=== PATIENT | female | born 2000 | race Caucasian/White ===

== ENCOUNTER → 2020-06-26 17:15 | Outpatient (CLI) | payer OTHER, SELFPAY ==
--- NOTE | 2020-06-26 17:19 | XR_ITS ---
PROCEDURE: XR KNEE LT 3V CLINICAL INDICATION: LEFT KNEE PAIN COMPARISON: No exams were available for comparison FINDINGS: No acute fracture or dislocation. No significant arthritic change. There is a fairly well-circumscribed lytic lesion involving the distal shaft the femur laterally measuring 6.2 cm longitudinal, 2.3 cm transverse, and 2.7 cm AP. The margins are fairly well-circumscribed with greater sclerosis along the distal aspect of the lesion. No obvious fracture or periosteal reaction. There is a narrow zone of transition. IMPRESSION: 1. No acute fracture. 2. Fairly well-circumscribed lytic lesion of the distal femur at the distal diaphyseal region as described above. This may represent a nonossifying fibroma. Other more aggressive lesions are not excluded and follow-up is recommended. MRI without and with contrast and bone scan may provide further evaluation.. Dictated by: Chacho Merchant MD 06/27/2020 04:17 Chacho Merchant MD in [place] 06/27/2020 04:17
== END ==
PROVIDERS: PCP Family Medicine; Visit Provider Family Medicine
DX: M25.562 Pain in left knee (principal)
CPT/HCPCS: 73562

== ENCOUNTER → 2020-07-06 13:57 | Outpatient (CLI) | payer OTHER, MEDICAID, SELFPAY ==
--- NOTE | 2020-07-06 14:00 | MR_ITS ---
PROCEDURE: MR FEMUR LT WO/W CON CLINICAL INDICATION: PAIN IN LEFT KNEE PT. C/O LEFT DSTAL FEMUR AND KNEE PAIN WITH NO KNOWN TRAUMA. LEFT KNEE COMPARISON: CR XR KNEE LT 3V from 06/26/2020 TECHNIQUE: Routine multiplanar multi echo sequences are performed without and with gadolinium enhancement. FINDINGS: There is a complex lytic lesion in the distal femur the distal diaphyseal region laterally involving both the intramedullary region and the cortex measuring 5 cm cephalad caudad 2 cm transverse, and 2.3 cm AP. This has internal cystic areas and does not demonstrate contrast enhancement. There is minimal endosteal scalloping posteriorly and minimal expansion of the cortex laterally.. No obvious soft tissue component or enhancement. There is a small Lawson's cyst present at 2 cm. IMPRESSION: Indeterminate lytic lesion of the distal femur. There are multiple cystic areas without enhancement or soft tissue component but with some expansion of the cortex. Differential diagnosis in this patient's age group would include fibrous dysplasia, aneurysmal bone cyst, eosinophilic granuloma, nonossifying fibroma. Cannot exclude the possibility of a more aggressive lesion. Recommend limited bone scan to determine activity of this lesion and orthopedic consult.. Dictated by: Chacho Merchant MD 07/10/2020 10:37 Chacho Merchant MD in [place] 07/10/2020 10:37
== END ==
PROVIDERS: PCP Family Medicine; Visit Provider Family Medicine
DX: M89.9 Disorder of bone, unspecified (principal); M25.562 Pain in left knee
CPT/HCPCS: 73720; A9576

== ENCOUNTER 2020-09-18 15:30 | Outpatient (RCR) | payer OTHER, MEDICAID, SELFPAY | END 2020-09-18 15:35 | disposition home or self-care (01) | LOC: PT 15:30 | PROVIDERS: PCP Family Medicine; Visit Provider Orthopaedic Surgery | DX: M25.561 Pain in right knee (principal) | CPT/HCPCS: 97010; 97014; 97110; 97163; G0283 ==

== ENCOUNTER → 2021-05-27 09:03 | Outpatient (CLI) | payer SELFPAY ==
--- NOTE | 2021-05-27 20:57 | PC.NURSE ---
Pt called and advised of positive covid test
--- NOTE | 2021-05-27 20:57 | PC.NURSE ---
pt called and advised of positive covid test
== END ==
PROVIDERS: PCP Family Medicine; Visit Provider Nurse Practitioner Family
DX: Z20.822 Contact with and (suspected) exposure to COVID-19 (principal); R05 Cough; J02.9 Acute pharyngitis, unspecified; U07.1 COVID-19
CPT/HCPCS: U0003

== ENCOUNTER 2021-06-04 08:59 | Emergency (ER) | payer SELFPAY ==
[2021-06-04 09:05] VITALS: BP 133/91; PULSE 88; RESP 18; TEMP 36.7; O2SAT 96; BMI 32.3
--- NOTE | 2021-06-04 09:48 | HMH.EDUTC ---
[facility] [place] Disposition Clinical Impression: Cough, Encounter for laboratory testing for COVID-19 virus Disposition: Home, Self-Care Condition on Discharge: Good Instructions: Cough, DI for COVID-19 (Suspected or Confirmed ), Coronavirus Disease 2019, Preventing the Spread of Coronavirus Discharge Instructions Additional Instructions: *Monitor Temp, Over the counter Motrin or Tylenol as directed/as needed Tylenol every 4 hours and Motrin every 6 hours (as long as your family doctor has told you that you can take it) for fever or pain. and straight to ER if unable to lower temp less than 101.0 after medication given *Warm salt water gargles may help to soothe the throat *Throat Lozenges *Warm fluids like tea with honey may help to soothe the throat *Sleep elevated *Humidifier/Vaporizer *Flonase 2 sprays in each nostril daily but be aware that it may take 2-3 days before you notice improvement Follow the instructions given to you by your Family Doctor or Health Dept Follow up IMMEDIATELY for new or worsening symptoms or no Noticeable improvement over the next 48-72 hours. 911 for difficulty breathing or swallowing You were tested for today for COVID19 your test result should be back in the next 24-48 hours, you may call to the [facility] to see if your test results are back in the next 48 hours [phone] [facility] hours are 9am-9pm You was given a handout with instructions for Self Quarantine and Self isolation for while you wait on test results and what to do if they are positive If you are positive the Health Dept will be contacting you also Make sure to take your Vitamins Vit. C Vit D and Zinc if you can take them Prescriptions: Benzonatate [Tessalon Perle 100mg Cap*] 100 mg PO TID PRN #15 cap PRN Reason: Cough Transmission Status: Pending to Clinic Pharm[facility] Referrals: German Mcpherson MD [Primary Care Provider] - As needed Forms: Work/School Release Time of Disposition: 10:00 Medical Decision Making - Karl Inquiry Pt receiving controlled substance: No Karl was queried for this patient: No Vital Signs: 06/04/21 09:05 Temperature 98.0 F Temperature Source Oral Pulse Rate [Right Brachial] 88 Respiratory Rate 18 Blood Pressure [Right Arm] 133/91 H Blood Pressure Mean [Right Arm] 105 Blood Pressure Source [Right Arm] Automatic Cuff Blood Pressure Position [Right Arm] Sitting 02 Sat by Pulse Oximetry 96 Oxygen Delivery Method Room Air [facility] [place] HPI - General Stated complaint: coughing Time Seen by Provider: 06/04/21 09:48 Mode of Arrival: Ambulatory Source of Information: Patient Limitations: No Limitations Description of Symptoms (Recalled from Triage Doc. by RN): PATIENT C/O COUGH AND CONGESTION. REQUESTING COVID TEST HEENT Symptoms (Recalled from RN notes): Yes Resp Symptoms (Recalled from RN notes): Yes Skin Symptoms (Recalled from RN notes): No MS Symptoms (Recalled from RN notes): No Functional Status (Recalled from RN notes): WNL - History of Present Illness Provider Complaint: Patient states that she tested positive for COVID on 05/27/21 States that she is still having cough and nasal congestion, her mother told her she may need to get retested States that she is set to come out of quarantine later in the week Denies SOA - Related Data Previous Rx's Medication Instructions Recorded Benzonatate [Tessalon Perle 100mg 100 mg PO TID PRN #15 cap 06/04/21 Cap*] Allergies Allergy/AdvReac Type Severity Reaction Status Date / Time No Known Allergies Allergy Verified 10/02/19 09:25 - Worker's Comp Is this a Worker's Comp case?: No [facility] History - Hepatitis A Screen Drug use history?: No High risk sexual behaviors?: No History of sexually transmitted infection?: No Currently employed?: No Childcare worker?: No Do you have indoor plumbing?: Yes Do you have electricity?: Yes Attestation statement:: This patient has been screened for Hepatitis A risk factors. I have reviewed the pa
[2021-06-04 10:04] VITALS: BP 133/91; PULSE 88; RESP 18; TEMP 36.7; O2SAT 96
--- NOTE | 2021-06-04 21:56 | PC.NURSE ---
PT NOTIFIED OF COVID TEST RESULTS
== END 2021-06-04 10:14 | disposition home or self-care (01) ==
PROVIDERS: Emergency Provider Nurse Practitioner; PCP Family Medicine
DX: U07.1 COVID-19 (principal)
CPT/HCPCS: 99202; G0463; U0003

== ENCOUNTER 2022-12-19 08:01 | Emergency (ER) | payer OTHER, SELFPAY ==
[2022-12-19 08:10] VITALS: BP 145/85; PULSE 131; RESP 23; TEMP 37.7; O2SAT 95; BMI 35.8
--- NOTE | 2022-12-19 08:20 | EXP.UTC ---
Discharge Plan Disposition Patient Disposition: Home, Self-Care Condition: Good Prescriptions Prescriptions: New amoxicillin [amoxicillin] 500 mg tablet 500 mg PO TID 10 Days Qty: 30 0RF benzonatate [benzonatate] 100 mg capsule 100 mg PO TIDP PRN (Reason: Cough) Qty: 30 0RF methylprednisolone 4 mg Tablets,Dose Pack 4 mg PO DIRECTED Qty: 21 0RF Referrals Follow up/Referrals: German Mcpherson MD [Primary Care Provider] - See instructions Activity Restrictions/Add. Instructions Additional Instructions/Restrictions: Drink plenty of fluids. Take tylenol or ibuprofen for pain or fever. Take the medications as directed. Follow up with your regular doctor. GO TO THE ER FOR ANY WORSENING SYMPTOMS Throw your tooth brush away and get a new one. Clinical Impressions Clinical Impression: Strep throat Stand Alone Forms Stand Alone Forms: Work/School Release Discharge ED Provider: Harjeet Bowen [facility] [place] HPI General Stated complaint: sore throat, WINN, chills, fever Time Seen by Provider: 12/19/22 08:20 History of Present Illness Provider Complaint: She states that for the past 1 day she has had sore throat, chills and malaise. Related Data Previous Rx's Medication Instructions Recorded amoxicillin 500 mg tablet 500 mg PO TID 10 days #30 tabs 12/19/22 benzonatate 100 mg capsule 100 mg PO TIDP PRN Cough #30 caps 12/19/22 methylprednisolone 4 mg tablets in 4 mg PO DIRECTED #21 tabs 12/19/22 a dose pack Allergies Allergy/AdvReac Type Severity Reaction Status Date / Time No Known Allergies Allergy Verified 10/02/19 09:25 [facility] Disclaimer: The information contained in this section may have been updated after the patient was seen, as this information can be updated by other users. Social History Smoking Status: Never smoker alcohol intake: never current occupational status: other Travel in the last 8 weeks: None ROS Obtained: Yes All systems reviewed & no additional complaints except as documented Constitutional Constitutional: Reports chills and Reports fever(s) Eyes Eyes: Denies eye discharge ENT Ears, Nose, Mouth, and Throat: Reports as per HPI Cardiovascular Cardiovascular: Denies chest pain Respiratory Respiratory: Denies chest congestion and Reports cough Gastrointestinal Gastrointestingal: Reports nausea; Denies abdominal pain, constipation, cramping, diarrhea or vomiting Musculoskeletal Musculoskeletal: Denies arthralgias Integumentary/Breasts Skin/Breast: Denies rash Neurologic Neurologic: Denies paresthesias Physical Exam General General appearance: alert and in no apparent distress Head Head exam: atraumatic, normocephalic and normal inspection Eye Eye exam: Present normal appearance, PERRL and EOMI ENT ENT exam: Present mucous membranes moist and normal external ear exam Expanded ENT Exam TM/Canal exam: Bilateral TM: erythema and bulging Nose exam: Absent sinus tenderness Mouth exam: Present normal external inspection; Absent drooling Teeth exam: Present normal inspection Throat exam: Present tonsillar erythema, tonsillomegaly and tonsillar exudate Neck Neck exam: Present normal inspection, full ROM and trachea midline; Absent tenderness, meningismus or lymphadenopathy Chest Chest inspection: Present normal inspection and symmetric chest wall rise; Absent tenderness Respiratory Respiratory exam: Present normal lung sounds bilaterally; Absent respiratory distress, wheezes or stridor Cardiovascular Cardiovascular exam: Present regular rate and normal rhythm; Absent systolic murmur or diastolic murmur Abdominal Exam Abdominal exam: Present soft and normal bowel sounds; Absent distention, tenderness, guarding, rebound or rigidity Extremities Exam Extremities exam: Present normal inspection and normal capillary refill; Absent calf tenderness Back Exam Back exam: Present normal inspection
[2022-12-19 08:24] LABS: UTC Influenza A Antigen Negative (Negative)
[2022-12-19 08:25] LABS: UTC Influenza B Antigen Negative (Negative)
[2022-12-19 08:25] LABS: UTC Strep Screen (Rapid) Positive (Negative)
[2022-12-19 08:45] VITALS: BP 145/85; PULSE 131; RESP 23; TEMP 37.7; O2SAT 95
== END 2022-12-19 09:28 | disposition home or self-care (01) ==
PROVIDERS: Emergency Provider Nurse Practitioner Family; PCP Family Medicine
DX: J02.0 Streptococcal pharyngitis (principal)
CPT/HCPCS: 87804; 87880; 99212; 99213; G0463

== ENCOUNTER 2023-06-30 08:00 | Emergency (ER) | payer OTHER, SELFPAY ==
[2023-06-30 08:05] VITALS: BP 155/96; PULSE 96; RESP 18; TEMP 37; O2SAT 98; BMI 35.6
--- NOTE | 2023-06-30 08:22 | EXP.UTC ---
Discharge Plan Disposition Patient Disposition: Home, Self-Care Condition: Good Prescriptions Prescriptions: New azithromycin [Zithromax Z-Don] 250 mg tablet See Rx Instructions .ROUTE .COMPLEX 5 Days Qty: 6 0RF Rx Instructions: For 250 mg dose pack: take 500 mg today (day 1), then 250 mg for 4 days (days 2-5) benzonatate 100 mg capsule 100 mg PO TID PRN (Reason: cough) Qty: 30 0RF methylprednisolone [Medrol (Don)] 4 mg tablets,dose pack See Rx Instructions .Route .COMPLEX 6 Days Qty: 21 0RF Rx Instructions: taper pack; No Action amoxicillin [amoxicillin] 500 mg tablet 500 mg PO TID 10 Days Qty: 30 0RF benzonatate [benzonatate] 100 mg capsule 100 mg PO TIDP PRN (Reason: Cough) Qty: 30 0RF methylprednisolone 4 mg Tablets,Dose Pack 4 mg PO DIRECTED Qty: 21 0RF methylprednisolone 4 mg Tablets,Dose Pack 4 mg PO DIRECTED Qty: 21 0RF cefdinir 300 mg capsule 300 mg PO BID Qty: 20 0RF Referrals Follow up/Referrals: Carlos Anthony MD [Primary Care Provider] - See instructions Activity Restrictions/Add. Instructions Additional Instructions/Restrictions: *Monitor Temp, Over the counter Motrin or Tylenol as directed/as needed Tylenol every 4 hours and Motrin every 6 hours (as long as your family doctor has told you that you can take it) for fever or pain. and straight to ER if unable to lower temp less than 101.0 after medication given *Warm salt water gargles may help to soothe the throat *Throat Lozenges? *Warm fluids like tea with honey may help to soothe the throat? *Sleep elevated *Humidifier/Vaporizer Follow up IMMEDIATELY for new or worsening symptoms or no Noticeable improvement over the next 48-72 hours. 911 for difficulty breathing or swallowing Clinical Impressions Clinical Impression: Sinusitis Qualifiers: Sinusitis location: unspecified location Chronicity: unspecified Qualified Code(s): J32.9 - Chronic sinusitis, unspecified Instructions Patient Instructions: DI for Sinusitis, Sinusitis Discharge ED Provider: Sarah Garcia [facility] HPI General Stated complaint: congestion, cough Mode of Arrival: Ambulatory Source of Information: Patient Limitations: No Limitations Time Seen by Provider: 06/30/23 08:22 Description of Symptoms (Recalled from Triage Doc. by RN): PATIENT C/O COUGH AND NASAL CONGESTION HEENT Symptoms (Recalled from RN notes): Yes Resp Symptoms (Recalled from RN notes): Yes Skin Symptoms (Recalled from RN notes): No MS Symptoms (Recalled from RN notes): No Functional Status (Recalled from RN notes): WNL History of Present Illness Provider Complaint: Patient states that she has been having sinus congestion and pressure for about a week that hasnt got better States that now she is having drainage in the back of her throat that is making her cough Related Data Previous Rx's Medication Instructions Recorded amoxicillin 500 mg tablet 500 mg PO TID 10 days #30 tabs 12/19/22 benzonatate 100 mg capsule 100 mg PO TIDP PRN Cough #30 caps 12/19/22 methylprednisolone 4 mg tablets in 4 mg PO DIRECTED #21 tabs 12/19/22 a dose pack cefdinir 300 mg capsule 300 mg PO BID #20 caps 05/11/23 methylprednisolone 4 mg tablets in 4 mg PO DIRECTED #21 tabs 05/11/23 a dose pack azithromycin 250 mg tablet See Rx Instructions PO .COMPLEX 5 06/30/23 (Zithromax Z-Don) days #6 tabs benzonatate 100 mg capsule 100 mg PO TID PRN cough #30 caps 06/30/23 methylprednisolone 4 mg tablets in See Rx Instructions .Route 06/30/23 a dose pack (Medrol (Don)) .COMPLEX 6 days #21 tabs Allergies Allergy/AdvReac Type Severity Reaction Status Date / Time No Known Allergies Allergy Verified 10/02/19 09:25 Worker's Comp Is this a Worker's Comp case?: No [facility] Disclaimer: The information contained in this section may have been updated after the patient was seen, as this information can be updated by other
[2023-06-30 08:30] VITALS: BP 155/96; PULSE 96; RESP 18; TEMP 37; O2SAT 98
== END 2023-06-30 08:33 | disposition home or self-care (01) ==
PROVIDERS: Emergency Provider Nurse Practitioner; PCP Family Medicine
DX: J01.90 Acute sinusitis, unspecified (principal)
CPT/HCPCS: 99212; 99214; G0463

== ENCOUNTER 2023-10-02 08:03 | Emergency (ER) | payer OTHER, SELFPAY ==
[2023-10-02 08:10] VITALS: BP 146/95; PULSE 117; RESP 18; TEMP 37.5; O2SAT 95; BMI 34.0
--- NOTE | 2023-10-02 08:13 | EXP.UTC ---
Discharge Plan Disposition Patient Disposition: Home, Self-Care Condition: Good Prescriptions Prescriptions: New cefdinir 300 mg capsule 300 mg PO BID Qty: 20 0RF No Action omeprazole 20 mg capsule,delayed release(DR/EC) PO fluticasone propionate 50 mcg/actuation spray,suspension intranasal Patient Comments: instill 1 SPRAY IN EACH NOSTRIL EVERY DAY celecoxib 100 mg capsule PO Patient Comments: TAKE ONE CAPSULE BY MOUTH EVERY DAY --TAKE WITH FOOD-- amlodipine 5 mg tablet PO Patient Comments: TAKE ONE TABLET BY MOUTH EVERY DAY loratadine 10 mg tablet PO montelukast 10 mg tablet PO Referrals Follow up/Referrals: German Mcpherson MD [Primary Care Provider] - See instructions Activity Restrictions/Add. Instructions Additional Instructions/Restrictions: *Monitor Temp, Over the counter Motrin or Tylenol as directed/as needed Tylenol every 4 hours and Motrin every 6 hours (as long as your family doctor has told you that you can take it) for fever or pain. and straight to ER if unable to lower temp less than 101.0 after medication given *Warm salt water gargles may help to soothe the throat *Throat Lozenges? *Warm fluids like tea with honey may help to soothe the throat? *Sleep elevated *Humidifier/Vaporizer Take medication as prescribed Your throat swab was sent for culture. Those results are typically sent to your primary care. Be sure to follow up in 2-3 days with your family doctor/primary care physician if no improvement so they can review those result and treat if necessary. If you don?t have a primary care doctor, I recommend you get one but in the mean time, you will have to return to a walk in clinic Follow up IMMEDIATELY for new or worsening symptoms or no Noticeable improvement over the next 48-72 hours. 911 for difficulty breathing or swallowing Clinical Impressions Clinical Impression: Otitis media Qualifiers: Otitis media type: unspecified Laterality: left Qualified Code(s): H66.92 - Otitis media, unspecified, left ear Instructions Patient Instructions: Middle Ear Infection, Sore Throat Discharge ED Provider: Sarah Garcia [facility] General Stated complaint: sore throat Time Seen by Provider: 10/02/23 08:13 History of Present Illness Provider Complaint: Patient states that she has been having sore throat, bilateral ear pain, swollen lymph nodes and congestion that has continued to get worse since Thursday States that today her throat and ear was hurting worse so she came in to get checked Related Data Home Medications Medication Instructions Recorded Confirmed amlodipine 5 mg tablet mg PO 08/26/23 08/26/23 celecoxib 100 mg capsule mg PO 08/26/23 08/26/23 fluticasone propionate 50 intranasal 08/26/23 08/26/23 mcg/actuation nasal spray,suspension loratadine 10 mg tablet mg PO 08/26/23 08/26/23 montelukast 10 mg tablet mg PO 08/26/23 08/26/23 omeprazole 20 mg capsule,delayed mg PO 08/26/23 08/26/23 release Previous Rx's Medication Instructions Recorded cefdinir 300 mg capsule 300 mg PO BID #20 caps 10/02/23 Allergies Allergy/AdvReac Type Severity Reaction Status Date / Time No Known Allergies Allergy Verified 10/02/23 08:21 [facility] Disclaimer: The information contained in this section may have been updated after the patient was seen, as this information can be updated by other users. Social History Smoking Status: Never smoker alcohol intake: never current occupational status: other Travel in the last 8 weeks: None ROS Obtained: Yes All systems reviewed & no additional complaints except as documented and Yes Systems reviewed as appropriate & no additional complaints except as documented Constitutional Constitutional: Reports system reviewed and no additional complaints
[2023-10-02 08:20] LABS: UTC Strep Screen (Rapid) Negative (Negative)
[2023-10-02 08:32] VITALS: BP 146/95; PULSE 117; RESP 18; TEMP 37.4; O2SAT 95
== END 2023-10-02 08:32 | disposition home or self-care (01) ==
PROVIDERS: Emergency Provider Nurse Practitioner; PCP Family Medicine
DX: H66.92 Otitis media, unspecified, left ear (principal); R07.0 Pain in throat; H92.03 Otalgia, bilateral; R09.81 Nasal congestion
CPT/HCPCS: 87880; 99212; 99214; G0463

== ENCOUNTER 2024-03-06 08:02 | Emergency (ER) | payer OTHER, SELFPAY ==
[2024-03-06 08:15] VITALS: BP 135/75; PULSE 130; RESP 20; TEMP 37.8; O2SAT 97; BMI 36.9
--- NOTE | 2024-03-06 08:27 | EXP.UTC ---
Discharge Plan Disposition Patient Disposition: Home, Self-Care Condition: Good Prescriptions Prescriptions: New azithromycin [Zithromax] 250 mg tablet 250 mg PO UD DOSE PK Qty: 6 0RF Rx Instructions: Take two (2) tablets today, then one (1) tablet days #2 thru #5 methylprednisolone 4 mg Tablets,Dose Pack 4 mg PO DIRECTED 6 Days Qty: 21 0RF Rx Instructions: Take 1 pack as directed for 6 days hfashknhuyurdzp-spkdxrbwa-AM [Bromfed DM] 2-30-10 mg/5 mL Syrup 5 ml PO Q6H PRN (Reason: Cough) Qty: 240 0RF No Action omeprazole 20 mg capsule,delayed release(DR/EC) 20 mg PO DAILY fluticasone propionate 50 mcg/actuation spray,suspension 1 spray intranasal DAILY Patient Comments: instill 1 SPRAY IN EACH NOSTRIL EVERY DAY celecoxib 100 mg capsule 100 mg PO DAILY Patient Comments: TAKE ONE CAPSULE BY MOUTH EVERY DAY --TAKE WITH FOOD-- amlodipine 5 mg tablet 5 mg PO DAILY Patient Comments: TAKE ONE TABLET BY MOUTH EVERY DAY loratadine 10 mg tablet 10 mg PO DAILY montelukast 10 mg tablet 10 mg PO DAILY Referrals Follow up/Referrals: German Mcpherson MD [Primary Care Provider] - See instructions Activity Restrictions/Add. Instructions Additional Instructions/Restrictions: Drink plenty of fluids. Take tylenol or ibuprofen for pain or fever. Take the medications as directed. Follow up with your regular doctor. GO TO THE ER FOR ANY WORSENING SYMPTOMS Clinical Impressions Clinical Impression: Otitis media Qualifiers: Otitis media type: unspecified Laterality: left Qualified Code(s): H66.92 - Otitis media, unspecified, left ear Sinusitis Qualifiers: Sinusitis location: unspecified location Chronicity: unspecified Qualified Code(s): J32.9 - Chronic sinusitis, unspecified Stand Alone Forms Stand Alone Forms: Work/School Release Instructions Patient Instructions: Middle Ear Infection, DI for Viral Syndrome Discharge ED Provider: Harjeet Bowen [facility] General Stated complaint: fever, sore throat, ear pain, headache, vomitting Time Seen by Provider: 03/06/24 08:27 Related Data Home Medications Medication Instructions Recorded Confirmed amlodipine 5 mg tablet 5 mg PO DAILY 08/26/23 03/06/24 celecoxib 100 mg capsule 100 mg PO DAILY 08/26/23 03/06/24 fluticasone propionate 50 1 spray intranasal DAILY 08/26/23 03/06/24 mcg/actuation nasal spray,suspension loratadine 10 mg tablet 10 mg PO DAILY 08/26/23 03/06/24 montelukast 10 mg tablet 10 mg PO DAILY 08/26/23 03/06/24 omeprazole 20 mg capsule,delayed 20 mg PO DAILY 08/26/23 03/06/24 release Previous Rx's Medication Instructions Recorded azithromycin 250 mg tablet 250 mg PO UD DOSE PK #6 tabs 03/06/24 (Zithromax) mmbsgijaobmcstd-xisefiatdwhixke-UV 5 ml PO Q6H PRN Cough #240 mL 03/06/24 2 mg-30 mg-10 mg/5 mL oral syrup (Bromfed DM) methylprednisolone 4 mg tablets in 4 mg PO DIRECTED 6 days #21 tabs 03/06/24 a dose pack Allergies Allergy/AdvReac Type Severity Reaction Status Date / Time No Known Allergies Allergy Verified 10/02/23 08:21 [facility] Disclaimer: The information contained in this section may have been updated after the patient was seen, as this information can be updated by other users. Medical History (Updated 03/06/24 @ 09:14 by Harjeet Bowen APRN) History of gastroesophageal reflux (GERD) Asthma Hypertension Social History Smoking Status: Never smoker alcohol intake: never current occupational status: other Travel in the last 8 weeks: None ROS Obtained: Yes All systems reviewed & no additional complaints except as documented Constitutional Constitutional: Denies chills, Reports fever(s) and Reports poor appetite Eyes Eyes: Denies eye discharge ENT Ears, Nose, Mouth, and Throat: Denies ear discharge, Reports otalgia, Denies hearing loss, Denies sinus pain and Reports sore throat Cardiovascular Cardiovascular: Denies chest pain and Denies dyspnea Respiratory Respiratory: Denies chest congestion, Reports cough and Denies dyspnea Gastrointestinal Gastrointestingal: Denies abdominal pain, diarrhea, nausea or vomiting Musculoskeletal Musculoskeletal: Denies arthralgias Integumentary/Breasts Skin/Breast: Denies rash Physical Exam General General appearance: alert and in no apparent distress Head Head exam: atraumatic, normocephalic and normal inspection Eye Eye exam: Present normal appearance; Absent PERRL or EOMI ENT ENT exam: Present mucous membranes moist and normal external ear exam Expanded ENT Exam TM/Canal exam: Bilateral TM: erythema, bulging and effusion Nose exam: Absent sinus tenderness Nasal speculum exam: Bilateral: normal Mouth exam: Present normal external inspection and other; Absent drooling Teeth exam: Present normal inspection Throat exam: Present tonsillar erythema and tonsillomegaly Neck Neck exam: Present normal inspection, full ROM and trachea midline; Absent tenderness, meningismus or lymphadenopathy Chest Chest inspection: Present normal inspection and symmetric chest wall rise; Absent tenderness Respiratory Respiratory exam: Present normal lung sounds bilaterally; Absent respiratory distress, wheezes or stridor Cardiovascular Cardiovascular exam: Present regular rate, normal rhythm and normal heart sounds; Absent tachycardia or irregular rhythm Abdominal Exam Abdominal exam: Present soft and normal bowel sounds; Absent distention, tenderness, guarding, rebound or rigidity Extremities Exam Extremities exam: Present normal inspection and normal capillary refill; Absent tenderness, joint swelling or calf tenderness Back Exam Back exam: Present normal inspection and full ROM; Absent tenderness, CVA tenderness (R) or CVA tenderness (L) Neurological Exam Neurological exam: Present alert, oriented X3, CN II-XII intact, normal gait and reflexes normal; Absent motor sensory deficit Psychiatric Psychiatric exam: Present normal affect and normal mood Skin Skin exam: Present warm, dry, intact and normal color Lymphatic Lymphatic Findings: no adenopathy Medical Decision Making Medical Records Medical records reviewed: No I reviewed the patient's medical records. Karl Inquiry Pt receiving controlled substance: No Lab Data Lab results reviewed: Yes I reviewed the patient's lab results.
[2024-03-06 09:08] LABS: UTC Influenza A Antigen Negative (Negative); UTC Influenza B Antigen Negative (Negative)
[2024-03-06 09:10] LABS: UTC Strep Screen (Rapid) Negative (Negative)
[2024-03-06 09:20] VITALS: BP 135/75; PULSE 130; RESP 20; TEMP 37.8; O2SAT 97
[2024-03-06 10:08] LABS: Coronavirus 19, PCR Not Detected (NotDetected); Influenza A, PCR Not Detected (NotDetected); Influenza B, PCR Not Detected (NotDetected)
== END 2024-03-06 09:26 | disposition home or self-care (01) ==
PROVIDERS: Emergency Provider Nurse Practitioner Family; PCP Family Medicine
DX: H66.92 Otitis media, unspecified, left ear (principal); J01.90 Acute sinusitis, unspecified; R50.9 Fever, unspecified; R51.9 Headache, unspecified; R07.0 Pain in throat
CPT/HCPCS: 87636; 87804; 87880; 99212; 99214; G0463

== ENCOUNTER 2024-06-04 08:06 | Outpatient (CLI) | payer OTHER, SELFPAY ==
[2024-06-04 09:58] LABS: Creatinine,Urine Random 81 mg/dL (Not Estab.)
[2024-06-04 10:14] LABS: Microalbumin < 6.000 mg/L (0-16.7)
[2024-06-04 10:16] LABS: Chloride 105 mmol/L (98-107); Potassium 4.2 mmoL/L (3.5-5.1); Sodium 140 mmol/L (136-145)
[2024-06-04 10:19] LABS: Anion Gap 11.2 mEq/L (5-15); Blood Urea Nitrogen 14 mg/dl (7-17); Calcium 8.9 mg/dl (8.4-10.2); Carbon Dioxide 28 mmol/L (22.0-30.0); Cholesterol 222 mg/dl (140-200); Estimated Glomerular Filt Rate 87 ml/min (>60); GFR (African American) 106 ML/MIN (>60); Glucose 98 mg/dl (74-100); Triglycerides 143 mg/dl (30-150); VLDL Cholesterol 29 mg/dL (0-40)
[2024-06-04 10:20] LABS: Chol/HDL Ratio 5.6 (1-3.5); HDL Cholesterol 40 mg/dl (40-60)
[2024-06-04 10:30] LABS: Direct LDL Cholesterol 137.76 mg/dL (100-129)
== END 2024-06-04 23:59 | disposition home or self-care (01) ==
LOC: LAB 08:07
PROVIDERS: PCP Family Medicine; Visit Provider Family Medicine
DX: I10 Essential (primary) hypertension (principal)
CPT/HCPCS: 36415; 80048; 80061; 82043; 82570

== ENCOUNTER 2024-10-15 14:31 | Emergency (ER) | payer OTHER, SELFPAY ==
--- NOTE | 2024-10-15 15:33 | ED_ITS ---
Discharge Plan Disposition Patient Disposition: Home, Self-Care Condition: Good Prescriptions Prescriptions: New amoxicillin 875 mg tablet 875 mg PO Q12H Qty: 20 0RF lrjcckjmobmkvzy-euoxekkfe-OZ [Bromfed DM] 2-30-10 mg/5 mL Syrup 5 ml PO Q6H PRN (Reason: Cough) Qty: 240 0RF No Action omeprazole 20 mg capsule,delayed release(DR/EC) 20 mg PO DAILY fluticasone propionate 50 mcg/actuation spray,suspension 1 spray intranasal DAILY Patient Comments: instill 1 SPRAY IN EACH NOSTRIL EVERY DAY celecoxib 100 mg capsule 100 mg PO DAILY Patient Comments: TAKE ONE CAPSULE BY MOUTH EVERY DAY --TAKE WITH FOOD-- amlodipine 5 mg tablet 5 mg PO DAILY Patient Comments: TAKE ONE TABLET BY MOUTH EVERY DAY loratadine 10 mg tablet 10 mg PO DAILY montelukast 10 mg tablet 10 mg PO DAILY azithromycin [Zithromax] 250 mg tablet 250 mg PO UD DOSE PK Qty: 6 0RF Rx Instructions: Take two (2) tablets today, then one (1) tablet days #2 thru #5 methylprednisolone 4 mg Tablets,Dose Pack 4 mg PO DIRECTED 6 Days Qty: 21 0RF Rx Instructions: Take 1 pack as directed for 6 days jmlgwtrhurluesm-seugvsbdu-PC [Bromfed DM] 2-30-10 mg/5 mL Syrup 5 ml PO Q6H PRN (Reason: Cough) Qty: 240 0RF Referrals Follow up/Referrals: Carlos Anthony MD [Primary Care Provider] - See instructions Activity Restrictions/Add. Instructions Additional Instructions/Restrictions: Drink plenty of fluids. Take tylenol or ibuprofen for pain or fever. Take the medications as directed. Follow up with your regular doctor. GO TO THE ER FOR ANY WORSENING SYMPTOMS Throw your tooth brush away and get a new one. Clinical Impressions Clinical Impression: Strep throat Instructions Patient Instructions: Strep Throat, DI for Strep Throat, Amoxicillin Print Language Print Language: Tamazight Discharge ED Provider: Harjeet Bowen [facility] [place] HPI General Stated complaint: st zamudio ear pain Time Seen by Provider: 10/15/24 15:33 History of Present Illness Provider Complaint: She states that for the past 2 days she has had worsening sore throat, low grade fever and malaise. Related Data Home Medications ?Medication ?Instructions ?Recorded ?Confirmed amlodipine 5 mg tablet 5 mg PO DAILY 08/26/23 03/06/24 celecoxib 100 mg capsule 100 mg PO DAILY 08/26/23 03/06/24 fluticasone propionate 50 1 spray intranasal DAILY 08/26/23 03/06/24 mcg/actuation nasal spray,suspension loratadine 10 mg tablet 10 mg PO DAILY 08/26/23 03/06/24 montelukast 10 mg tablet 10 mg PO DAILY 08/26/23 03/06/24 omeprazole 20 mg capsule,delayed 20 mg PO DAILY 08/26/23 03/06/24 release Previous Rx's ?Medication ?Instructions ?Recorded azithromycin 250 mg tablet 250 mg PO UD DOSE PK #6 tabs 03/06/24 (Zithromax) tpcnaawiexxkrfj-ccirubxmxcklxhz-PT 5 ml PO Q6H PRN Cough #240 mL 03/06/24 2 mg-30 mg-10 mg/5 mL oral syrup (Bromfed DM) methylprednisolone 4 mg tablets in 4 mg PO DIRECTED 6 days #21 tabs 03/06/24 a dose pack amoxicillin 875 mg tablet 875 mg PO Q12H #20 tabs 10/15/24 bsditgivvqjcjlf-wzfqdkodswwxnjk-DG 5 ml PO Q6H PRN Cough #240 mL 10/15/24 2 mg-30 mg-10 mg/5 mL oral syrup (Bromfed DM) Allergies Allergy/AdvReac Type Severity Reaction Status Date / Time No Known Allergies Allergy Verified 10/02/23 08:21 [facility] Disclaimer: The information contained in this section may have been updated after the patient was seen, as this information can be updated by other users. Medical History (Updated 10/15/24 @ 16:22 by Harjeet Bowen APRN) History of gastroesophageal reflux (GERD) Asthma Hypertension Social History Smoking Status: Never smoker alcohol intake: never current occupational status: other Travel in the last 8 weeks: None Have you lived/traveled outside US in past 30 days?: No Contact w/someone who lives/traveled outside US past 30 days?: No Exposure to someone with infectious disease in past 14 days?: No Do you have a fever (greater than 100.4 F or 38 C)?: No Have you tested positive for COVID-19: No Exposed to someone with COVID-19 in past 14 days?: No Do you have a sore throat?: Yes Do you have a cough?: No Do you have any weakness?: Yes Do you have any diarrhea?: No Are you experiencing any unusual bleeding?: No Do you have any muscle aches/pain?: No Do you have any abdominal pain?: No Are you experiencing loss of taste or smell?: No ROS Obtained: Yes All systems reviewed & no additional complaints except as documented Constitutional Constitutional: Reports chills and Reports fever(s) Eyes Eyes: Denies eye discharge ENT Ears, Nose, Mouth, and Throat: Reports as per HPI Cardiovascular Cardiovascular: Denies chest pain Respiratory Respiratory: Denies chest congestion and Reports cough Gastrointestinal Gastrointestingal: Reports nausea; Denies abdominal pain, constipation, cramping, diarrhea or vomiting Musculoskeletal Musculoskeletal: Denies arthralgias Integumentary/Breasts Skin/Breast: Denies rash Neurologic Neurologic: Denies paresthesias Physical Exam General General appearance: alert and in no apparent distress Head Head exam: atraumatic, normocephalic and normal inspection Eye Eye exam: Present normal appearance, PERRL and EOMI ENT ENT exam: Present mucous membranes moist and normal external ear exam Expanded ENT Exam TM/Canal exam: Bilateral TM: erythema and bulging Nose exam: Absent sinus tenderness Mouth exam: Present normal external inspection; Absent drooling Teeth exam: Present normal inspection Throat exam: Present tonsillar erythema, tonsillomegaly and tonsillar exudate Neck Neck exam: Present normal inspection, full ROM and trachea midline; Absent tenderness, meningismus or lymphadenopathy Chest Chest inspection: Present normal inspection and symmetric chest wall rise; A bsent tenderness Respiratory Respiratory exam: Present normal lung sounds bilaterally; Absent respiratory distress, wheezes, stridor or accessory muscle use Cardiovascular Cardiovascular exam: Present regular rate and normal rhythm; Absent systolic murmur or diastolic murmur Abdominal Exam Abdominal exam: Present soft and normal bowel sounds; Absent distention, tenderness, guarding, rebound or rigidity Extremities Exam Extremities exam: Present normal inspection and normal capillary refill; Absent calf tenderness Back Exam Back exam: Present normal inspection and full ROM; Absent tenderness, CVA tenderness (R) or CVA tenderness (L) Neurological Exam Neurological exam: Present alert, oriented X3 and CN II-XII intact Psychiatric Psychiatric exam: Present normal affect and normal mood Skin Skin exam: Present warm, dry, intact and normal color Medical Decision Making Medical Records Medical records reviewed: No I reviewed the patient's medical records. Screening: Per USPSTF and CDC recommendations, given the prevalence of disease in our region, it is our hospital?s policy to screen for HIV and viral Hepatitis for all patients aged 18 and over and those with ongoing risk factors. Karl Inquiry Pt receiving controlled substance: No Lab Data Lab results reviewed: Yes I reviewed the patient's lab results.
[2024-10-15 15:43] VITALS: BP 130/91; PULSE 115; RESP 18; TEMP 37.1; O2SAT 96; BMI 37.0
[2024-10-15 15:47] LABS: UTC Strep Screen (Rapid) Positive (Negative)
[2024-10-15 16:37] VITALS: BP 130/91; PULSE 115; RESP 18; TEMP 37.1
== END 2024-10-15 16:37 | disposition home or self-care (01) ==
PROVIDERS: Emergency Provider Nurse Practitioner Family; PCP Family Medicine
DX: J02.0 Streptococcal pharyngitis (principal)
CPT/HCPCS: 87880; 99213; G0381

== ENCOUNTER 2025-06-07 07:32 | Outpatient (CLI) | payer OTHER, SELFPAY ==
--- OUTSIDE RECORDS SUMMARY | 2025-03-27 12:15 | XMS_ITS ---
Author Organization [facility] Address [address] [place] [id number] Care Team Providers Care Stenotypist Name Role Phone Ligia Mcpherson Primary Care Provider Carlos Anthony Unavailable [phone] Allergies No Known Allergies REASON FOR VISIT boil on left thigh Medications Medication SIG (Take, Route, Frequency, Duration) Notes Start Date End Date Status amLODIPine Besylate 5 MG 1 tab(s) orally once a day; Duration: 90 days Active Omeprazole 20 mg TAKE TWO CAPSULES BY MOUTH EVERY DAY 30 minutes BEFORE morning meal; Duration: 90 Active Loratadine 10 mg TAKE ONE TABLET BY M OUTH EVERY DAY; Duration: 90 Active CeleBREX 100 MG 1 capsule with food Orally Once a day; Duration: 90 days Active Montelukast Sodium 10 mg TAKE ONE TABLET BY MOUTH EVERY DAY; Duration: 90 Active Airsupra 90-80 MCG/ACT 2 puffs as needed Inhalation Six times a day 12/04/2023 Active Spacer/Aero-Holding Chambers - as directed 12/04/2023 Active Fluticasone Propionate 50 MCG/ACT 1 spray in each nostril Nasally Once a day 06/03/2023 Active Clindamycin HCl 300 MG 1 capsule Orally every 8 hrs; Duration: 7 days 03/27/2025 Active Albuterol Sulfate HFA 108 (90 Base) MCG/ACT 2 puff(s) inhaled every 6 hours as needed Active Problems Problem Type SNOMED Code ICD Code Onset Dates Problem Status W/U Status Risk Notes Problem Hidradenitis suppurativa (16155091) Hidradenitis suppurativa (L73.2) Active confirmed Vital Signs Blood pressure systolic 122 mm Hg 03/27/20 25 Blood pressure diastolic 80 mm Hg 025 Heart Rate 110 /min 03/27/2025 Height 61.50 in 03/27/2025 Weight 195 lbs 03/27/2025 BMI 36.24 kg/m2 03/27/2025 Encounters Encounter Location Date Provider Diagnosis [facility] [address] [place] [address] [address] [facility] [address] [place], [place] [id number] 03/27/2025 Carlos Anthony Hidradenitis suppura tiva L73.2 and Cellulitis of left thigh L03.116 Assessments Encounter Date Diagnosis (ICD Code) Assessment Notes Treatment Notes Treatment Clinical Notes Section Notes 03/27/2025 Hidradenitis suppurativa (ICD-10 - L73.2) Discussed referral to dermatology, patient will call when she wants to proceed 03/27/2025 Cellulitis of left thigh (ICD-10 - L03.116) Plan Of Treatment Medication Medication Name Sig Start Date Stop Date Notes Clindamycin HCl 300 MG 1 capsule Orally every 8 hrs; Duration: 7 days 03/27/2025 Treatment Notes Assessment Notes Hidradenitis suppurativa Discussed refer ral to dermatology, patient will call when she wants to proceed Next Appt Details Follow Up: via phone to repo rt progress, Reason: Provider Name:Carlos Tran , 12/04/2025 04:00:00 PM, [facility] [address], [address], [place], [id number], Progress Notes * IMELDA PRICEFOSTERDOB:[birth year] (24 yo F)Acc No.[id number]:03/27/2025 Progress Notes Patient: TRENTON RIBEIRO Provider: Nita Anthony M.D. :2000 A ge:24 Y S ex:Female Date:03/27/2025 Address:[id number] Pcp:Ligia Mcpherson Subjective: * Chief Complaints: * 1 . Boil on left thigh. * HPI: D ermatology: 24 year old female presents with c/o abscess P t complains of abscess on lt inner thigh that she noticed 2 days ago. Pt has swelling and redness. Pt denies drainage. * ROS: C ARDIOLOGY: no D izziness. n o C hest pain. G ASTROENTEROLOGY: no N ausea. n o V omiting. U ROLOGY: no D ifficulty urinating. n o B lood in urine. * Medical History: H ypertension, Pneumonia, Asthma, Allergic Rhinitis, Hypercholestrolemia, Distal left femur temor, MRI 2019, s/p evaluation at . * Surgical History: D enies Past Surgical History. * Hospitalization/Major Diagno stic Procedure: D enies Past Hospitalization. * Family History: F ather: alive. M other: alive. 1 brother(s) - healthy. . * Social History: C affeine: yes, frequency:occasional. Home smoke detector use: yes. Past smoking status: no, Smoking status: Does not smoke. * Medications: T aking Albuterol Sulfate HFA 108 (90 Base) MCG/ACT Aerosol Solution 2 puff(s) inhaled every 6 hours as needed , Taking Fluticasone Propionate 50 MCG/ACT Suspension 1 spray in each nostril Nasally Once a day , Taking Spacer/Aero-Holding Chambers - Device as directed , Taking Airsupra 90-80 MCG/ACT Aerosol 2 puffs as needed Inhalation Six times a day , Taking Montelukast Sodium 10 mg Tablet TAKE ONE TABLET BY MOUTH EVERY DAY , Taking CeleBREX 100 MG Capsule 1 capsule with food Orally Once a day , Taking Loratadine 10 mg Tablet TAKE ONE TABLET BY MOUTH EVERY DAY , Taking Omeprazole 20 mg Capsule Delayed Release TAKE TWO CAPSULES BY MOUTH EVERY DAY 30 minutes BEFORE morning meal , Taking amLODIPine Besylate 5 MG Tablet 1 tab(s) orally once a day , Discontinued Medrol 4 MG Tablet Therapy Pack as directed Orally daily , Medication List reviewed and reconciled with the patient * Allergies: N .K.D.A. Objective: * Vitals: W t: 195, Temp: 98.3, BP: 122/80, HR: 110, Nurse: lois, Ht: 61.50, BMI:36.24. * Examination: G eneral Examination: General Appearance: N AD. S kin: m ost proximal left inner thigh with an area of skin redness, with tenderness to palpation, numerous purple areas from previous infections on both inner thighs. Assessment: * Assessment: 1. H idradenitis suppurativa - L73.2 (Primary) 2 . C ellulitis of left thigh - L03.116 Plan: * Treatment: 2. C ellulitis of left thigh Start Clindamycin HCl Capsule, 300 MG, 1 capsule, Orally, every 8 hrs, 7 days, 21 Capsule, Refills 0. * Procedure Codes: 1 036F TOBACCO NON-USER, G8783 BP SCR PRFRM RCMDD DEFIND SCR INTVL, G8752 MOST RECENT SYSTOLIC BP < 140MM HG, G8754 MOST RECENT DIASTOLIC BP < 90MM HG * Follow Up: v ia phone to report progress * Images: Billing Information: * Visit Code: 44597 Office Visit, Est Pt., Level 3. * Procedure Codes: 1036F TOBACCO NON-USER. G8783 BP SCR PRFRM RCMDD DEFIND SCR INTVL. G8752 MOST RECENT SYSTOLIC BP < 140MM HG. G8754 MOST RECENT DIASTOLIC BP < 90MM HG. * Electronic signature of Юлия Anthony MD on 06/07/2025 at 07:35 AM EDT Sign off status: Pending * Provider: Nita Anthony M.D. Date: 0 03/27/2025 Generated for Carmen massey/Gen/Janeyitting on: 0 06/07/2025 07:35 AM EDT History and Physical Notes * HPI (History of Present Illness) Category Sub-Category Detail Notes Category Not es Dermatology abscess Pt complains of abscess on lt inner thigh that she noticed 2 days ago. Pt has swelling and redness. Pt denies drainage Examination Category Sub-Category Detail Notes Category Not es General Examination General Appearance: NAD Skin: most proximal left i nner thigh with an area of skin redness, with tenderness to palpation, numerous purple areas from previous infections on both inner thighs
--- OUTSIDE RECORDS SUMMARY | 2025-04-24 05:45 | XMS_ITS ---
Author Organization [facility] Address [address] [facility] [address] [facility] [address] [place] [id number] Care Team Providers Care Babcock Tester Name Role Phone Ligia Mcpherson Primary Care Provider Carlos Anthony [phone] Reason For Referral Reason patient has seen Dr. Anthony in the past for this; has appt already but wanted us to send this as well Diagnosis 1 Hidradenitis suppura tiva (L73.2) [facility] Referring Provider First Name Ligia Aguayo Referring Provider Last Name Ky Referring Provider [facility] Referred Provider Specialty Dermatology General Notes Marta Cote 2024 09:14:13 AM > faxed to Dr. Carpenter's office Referral Priority Routine REASON FOR VISIT Needs referral Encounters Encounter Location Date Provider Diagnosis [facility] [address] [facility] [address] [facility] [address] [place] [id number] 04/24/2025 Carlos Anthony Hidradenitis suppura tiva L73.2 Assessments Encounter Date Diagnosis (ICD Code) Assessment Notes Treatment Notes Treatment Clinical Notes Section Notes 04/24/2025 Hidradenitis suppurativa (ICD-10 - L73.2) Plan Of Treatment Referrals Referral Date Details 04/24/2025 04/24/2025, patient has seen Dr. Anthony in the past for this; has appt already but wanted us to send this as well Next Appt Details Provider Name:Carlos Tran ry, 12/04/2025 04:00:00 PM, [address], [address], [place], [id number], Progress Notes * TRENTON PRICEDOB:[birth year] (24 yo F)Acc No.[id number]:04/24/2025 Patient: TRENTON RIBEIRO :2000 A ge:24 Y S ex:Female Address:[address] [place] [address] Subjective: * Chief Complaints: * N eeds referral * Medical History: * Surgical History: * Hospitalization/Major Diagno stic Procedure: * Medications: Objective: * Vitals: * Physical Examination: Assessment: * Assessment: 1. H idradenitis suppurativa - L73.2 (Primary) Plan: * Treatment: * Procedure Codes: * true * Date: Generated for Carmen massey/Gen/Wangsmitting on: 0 06/07/2025 07:35 AM EDT Consultation Request Notes Referral Date Referring Provider Referred Provider Not es 04/24/2025 Ligia Mcpherson , patient zamudio s seen Dr. Anthony in the past for this; has appt already but wanted us to send this as well
--- OUTSIDE RECORDS SUMMARY | 2025-06-05 12:00 | XMS_ITS ---
Author Organization [facility] Address [address] [place] [id number] Care Team Providers Care Senior Interaction Designer Name Role Phone Ligia Mcpherson Primary Care Provider [phone] Carlos Anthony Unavailable [phone] Allergies No Known Allergies REASON FOR VISIT 6 month ckup Medications Medication SIG (Take, Route, Frequency, Duration) Notes Start Date End Date Status Montelukast Sodium 10 mg 1 tablet orally once a day; Duration: 90 days Active Cyclobenzaprine HCl 5 MG 1 tablet at bed time as needed Orally Once a day; Duration: 30 days 06/05/2025 Active CeleBREX 100 MG 2 capsules with food Orally Once a day Active Albuterol Sulfate HFA 108 (9 0 Base) MCG/ACT 2 puff(s) inhaled every 6 hours as needed Active Fluticasone Propionate 50 MCG/ACT 1 spray in each nostril Nasally Once a day 06/03/2023 Active amLODIPine Besylate 5 MG 1 tab(s) orally once a day; Duration: 90 days Active Loratadine 10 mg TAKE ONE TABLET BY MOUTH EVERY DAY; Duration: 90 Active Airsupra 90-80 MCG/ACT 2 puffs as needed Inhalation Six times a day 12/04/2023 Active Omeprazole 20 mg TAKE TWO CAPSULES BY MOUTH EVERY DAY 30 minutes BEFORE morning meal; Duration: 90 Active Spacer/Aero-Holding Chambers - as directed 12/04/2023 Active Problems Problem Type SNOMED Code ICD Code Onset Dates Problem Status W/U Status Risk Notes Problem Hyperlipidemia (86695883) Other hyperlipidemia (E78.49) Active confirmed Vital Signs Blood pressure systolic 126 mm Hg 06/05/20 25 Blood pressure diastolic 76 mm Hg 025 Heart Rate 85 /min 06/05/2025 Height 61.50 in 06/05/2025 Weight 198.4 lbs 06/05/2025 BMI 36.88 kg/m2 06/05/2025 Encounters Encounter Location Date Provider Diagnosis [facility] [address] [facility] [address] [facility] [address] [place] [id number] 06/05/2025 Carlos Anthony Primary hypertension I10 ; Other hyperlipidemia E78.49 ; Pain in left thigh M79.652 and Heartburn R12 Assessments Encounter Date Diagnosis (ICD Code) Assessment Notes Treatment Notes Treatment Clinical Notes Section Notes 06/05/2025 Primary hypertension (ICD-10 - I10) 06/05/2025 Other hyperlipidemia (ICD-10 - E78.49) 06/05/2025 Pain in left thigh (ICD-10 - M79.652) 06/05/2025 Heartburn (ICD-10 - R12) Plan Of Treatment Medication Medication Name Sig Start Date Stop Date Notes Cyclobenzaprine HCl 5 MG 1 tablet at bed time as needed Orally Once a day; Duration: 30 days 06/05/2025 CeleBREX 100 MG 2 capsules with food Orally Once a day Pending Test Test Name Order Date X ray : Femur, left 06/05/2025 H-TSH 06/05/2025 H-Microalbumine/Creatinine 06/05/2025 H-Lipid Panel 06/05/2025 H-CMP 06/05/2025 Next Appt Details Follow Up: via phone to repo rt test results, Reason: Provider Name:Carlos Tran , 12/04/2025 04:00:00 PM, [address] [facility] [address] [facility], [address], [place], [phone], Progress Notes * YANCIEDDY TRENTONDOB:[birth year] (24 yo F)Acc No.[id number]:06/05/2025 Progress Notes Patient: TRENTON RIBEIRO Provider: Nita Anhtony M.D. :2000 A ge:24 Y S ex:Female Date:06/05/2025 Address:[address] [place] [address] [id number] Pcp:Ligia Mcpherson Subjective: * Chief Complaints: * 1 . 6 month ckup. * HPI: C ardiology: 24 year old female presents with c/o Blood Pressure Elevated?Pt here for 6 mo check up on hypertension. Pt states she is doing well and does not have any concerns. L eg: c/o Leg pain P t complains of lt leg pain that started over the weekend. Pt would like to discuss possibly starting on medication to help with pain. * ROS: D ERMATOLOGY: no R ling. n o H raquel. G ASTROENTEROLOGY: no N ausea. n o [...] - healthy. . * Social History: C URRENT TOBACCO USE: No . C affeine: yes, frequency:occasional. Home smoke detector [...] Inhalation Six times a day , Taking CeleBREX 100 MG Capsule 1 capsule with food Orally Once a day , Taking Omeprazole 20 mg Capsule Delayed Release TAKE TWO CAPSULES BY MOUTH EVERY DAY 30 minutes BEFORE morning meal , Taking amLODIPine Besylate 5 MG Tablet 1 tab(s) orally once a day , Taking Loratadine 10 mg Tablet TAKE ONE TABLET BY MOUTH EVERY DAY , Taking Montelukast Sodium 10 mg Tablet 1 tablet orally once a day , Discontinued Clindamycin HCl 300 MG Capsule 1 capsule Orally every 8 hrs , Medication List reviewed and reconciled with the patient * Allergies: N .K.D.A. Objective: * Vitals: W t: 198.4, Temp: 98.4, BP: 126/76, HR: 85, Nurse: pe, Ht: 61.50, BMI:36.88. * Examination: G eneral Examination: General Appearance: N AD. H eart: R SR. L ungs:?clear to auscultation. E xtremities: n o leg edema, some tenderness at the left knee both medial and lateral joint lines. Assessment: * Assessment: 1. P rimary hypertension - I10 (Primary) 2 . O ther hyperlipidemia - E78.49? 3. P ain in left thigh - M79.652 4 . H eartburn - R12 Plan: * Treatment: 2. O ther hyperlipidemia L AB: H-TSH L AB: H-Lipid Panel L AB: H-CMP 3. P ain in left thigh Start Cyclobenzaprine HCl Tablet, 5 MG, 1 tablet at bedtime as needed, Orally, Once a day, 30 days, 30, Refills 0; I ncrease CeleBREX Capsule, 100 MG, 2 capsules with food, Orally, Once a day.? I maging: X ray : Femur, left * Follow Up: v ia phone to report test results * Images: Billing Information: * Visit Code: 26554 Office Visit, Est Pt., Level 4. * Procedure Codes: * Electronic signature of Юлия Anthony MD on 06/07/2025 at 07:35 AM EDT Sign off status: Pending * Provider: Nita Anthony M.D. Date: 06/05/2025 Generated for Carmen massey/Gen/Janeyitting on: 0 06/07/2025 07:35 AM EDT History and Physical Notes * HPI (History of Present Illness) Category Sub-Category Detail Notes Category Not es Cardiology Blood Pressure Elevated Pt here for 6 mo check up on hypertension. Pt states she is doing well and does not have any concerns Leg Leg pain Pt complains of lt leg pain that started over the weekend. Pt would like to discuss possibly starting on medication to help with pain Examination Category Sub-Category Detail Notes Category Not es General Examination Heart: RSR Lungs: clear to auscultatio n Extremities: no leg edema, some t enderness at the left knee both medial and lateral joint lines General Appearance: NAD
--- OUTSIDE RECORDS SUMMARY | 2025-06-07 07:36 | XMS_ITS | Patient Health Record ---
[facility] Organization [facility] Address [address] [facility] [address] [place] [id number] Care Team Providers Care Automobile Mechanic Supervisor Name Role Phone Ligia Mcpherson Primary Care Provider Carlos Anthony Unavailable [phone] Robyn Ash Unavailable [phone] Allergies No Known Allergies Medications Medication SIG (Take, Route, Frequency, Duration) Notes Start Date End Date Status amLODIPine Besylate 5 MG 1 tab(s) orally once a day; Duration: 90 days Active Loratadine 10 mg TAKE ONE TABLET BY MOUTH EVERY DAY; Duration: 90 Active Montelukast Sodium 10 mg 1 tablet orally once a day; Duration: 90 days Active Spacer/Aero-Holding Chambers - as directed 12/04/2023 Active Airsupra 90-80 MCG/ACT 2 puffs as needed Inhalation Six times a day 12/04/2023 Active Omeprazole 20 mg TAKE TWO CAPSULES BY MOUTH EVERY DAY 30 minutes BEFORE morning meal; Duration: 90 Active Cyclobenzaprine HCl 5 MG 1 tablet [...] nostril Nasally Once a day 06/03/2023 Active Immunizations Vaccine Route Administration Date Status Comme nts Tetanus Tdap-Adacel (over 7yrs) IM Intramuscular 03/12/2011 Administered MMR Unknown 07/14/2002 Administered Menactra IM Intramuscular 03/12/2011 Administered IPV Unknown 07/14/2002 Administered HIB Unknown 01/21/2000 Administered COVID 19 Moderna Unknown 08/23/2021 Administered COVID 19 Moderna Unknown 09/20/2021 Administered Problems Problem Type SNOMED Code ICD Code Onset Dates Problem Status W/U Status Risk Notes Problem Chronic pain (13391023) Other chronic pain (G89.29) Active confirmed Problem Hidradenitis suppurativa (47611387) Hidradenitis suppurativa (L73.2) Active confirmed Problem Bronchitis (12961466) Bronchitis (J40) Active confirmed Problem Mild intermittent asthma (983388411) Mild intermittent asthma without complication (J45.20) Active confirmed Problem Exacerbation of asthma (342402405) Asthmatic bronchitis with acute exacerbation (J45.901) Active confirmed Problem Uncomplicated mild persistent asthma (263860715) Mild persistent asthma, unspecified whether complicated (J45.30) Active confirmed Problem Seasonal allergic rhinitis (553343746) Seasonal allergic rhinitis, unspecified trigger (J30.2) Active confirmed Problem Hyperlipidemia (36932919) Other hyperlipidemia (E78.49) Active confirmed Problem Primary hypertension (62602052) Primary hypertension (I10) Active confirmed Vital Signs Heart Rate 85 /min 06/05/2025 Blood pressure diastolic 76 mm Hg 06/05/2025 Height 61.50 in 06/05/2025 Blood pressure systolic 126 mm Hg 06/05/2025 Weight 198.4 lbs 06/05/2025 BMI 36.88 kg/m2 06/05/2025 Encounters Encounter Location Date Provider Diagnosis [facility] [address] [facility] [address] [place], [place] [id number] 12/05/2024 Carlos [place] Primary hypertension I10 and Otalgia of left ear H92.02 [facility] [address] [facility] [address] [place], [place] [id number] 12/07/2024 Carlos [place] Irritation of left e ye H57.89 [facility] [address] [facility] [address] [place], [place] [id number] 03/20/2025 Robyn Ash Contact dermatitis d ue to poison andrei L23.7 [facility] [address] [facility] [address] [place], [place] [id number] 03/27/2025 Carlos [place] Hidradenitis suppurativa L73.2 and Cellulitis of left thigh L03.116 [facility] [address] [place] [id number] 06/05/2025 Carlos [place] Primary hypertension I10 ; Other hyperlipidemia E78.49 ; Pain in left thigh M79.652 and Heartburn R12 [facility] [address] [facility] [address] [place] [id number] 04/24/2025 Carlos [place] Hidradenitis suppurativa L73.2 Assessments Encounter Date Diagnosis (ICD Code) Assessment Notes Treatment Notes Treatment Clinical Notes Section Notes 06/05/2025 Other hyperlipidemia (ICD-10 - E78.49) 06/05/2025 Primary hypertension (ICD-10 - I10) 04/24/2025 Hidradenitis suppurativa (ICD-10 - L73.2) 03/27/2025 Hidradenitis suppurativa (ICD-10 - L73.2) Discussed referral to dermatology, patient will call when she wants to proceed 03/27/2025 Cellulitis of left thigh (ICD-10 - L03.116) 03/20/2025 Contact dermatitis due to poison andrei (ICD-10 - L23.7) Start medrol pack if at the end a new rash forms or comes back, start another pack. Continue with OTC creams, benadryl ok. follow up if not getting better 12/07/2024 Irritation of left eye (ICD-10 - H57.89) OTC eye drops as needed, call with any new symptoms 12/05/2024 Otalgia of left ear (ICD-10 - H92.02) symptomatic treatment of pain. Return if worsening of pain or developement of new symptoms 12/05/2024 Primary hypertension (ICD-10 - I10) 06/05/2025 Pain in left thigh (ICD-10 - M79.652) 06/05/2025 Heartburn (ICD-10 - R12) Plan Of Treatment Pending Test Test Name Order Date X ray : Femur, left 06/05/2025 H-TSH 06/05/2025 H-Microalbumine/Creatinine 06/05/2025 H-Lipid Panel 06/05/2025 H-CMP 06/05/2025 P-Basic Metabolic Panel (BMP) 12/04/2022 P-CBC with Diff plus Absolute Counts P-Lipid Panel 12/04/2022 P-Microalbumin/Creatinine, Random Urine Sample 12/04/2022 P-Uric Acid 12/04/2022 Next Appt Details Provider Name:Carlos Kelly Marc ry, 12/04/2025 04:00:00 PM, [address], [address], [place], [place], [id number], Insurance Providers Payer Name Payer Address Payer Phone Subscriber Number Group Number Insured Name Patient Relationship to Insured Coverage Start Date Coverage End Date [facility] [address] [address] [place] [phone] [id number] TRENTON PRICE Self - patient is the insured Medical (General) History Medical History History ICD Code Hypertension Pneumonia Asthma Allergic Rhinitis hypercholestrolemia Distal left femur temor, MRI 2019, s/p e valuation at Surgical History Surgery Date(Month/Year) Hospitalization History Reason Date(Month/Year)
--- NOTE | 2025-06-07 08:07 | XR_ITS ---
FINAL REPORT CLINICAL HISTORY: f/u bone growth prior xray and mri from 2019 sent COMPARISON: Left knee 06/26/2020 and MRI left femur 07/06/2020 FINDINGS: Multiple views of the left femur were obtained. There is a mixed lucent and sclerotic lesion in the lateral aspect of the distal left femoral metaphysis. Lesion is cortically based with narrow zone of transition. It measures 6.4 x 2.5 cm and was 6.3 x 2.4 cm, unchanged. There is no evidence of pathologic fracture. No periosteal reaction identified. No additional bone lesions are seen. The remainder of the femur is unremarkable. IMPRESSION: Stable mixed lytic and sclerotic lesion in the distal left femur. 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 Reviewed, Interpreted and Dictated by Kennedi Sevilla MD Transcribed by Opal Ji Authenticated and . [facility]
[2025-06-07 09:00] LABS: Albumin Level 4.5 g/dl (3.5-5.0); Chloride 107 mmol/L (98-107); Potassium 4.2 mmoL/L (3.5-5.1); Sodium 141 mmol/L (136-145)
[2025-06-07 09:03] LABS: Alanine Aminotransferase 16 U/L (12-78); Albumin/Globulin Ratio 1.6 (1.1-1.8); Alkaline Phosphatase 108 U/L (38-126); Anion Gap 13.2 mEq/L (5-15); Aspartate Amino Transferase 27 U/L (14-36); Bilirubin,Total 0.6 mg/dl (0.2-1.3); Blood Urea Nitrogen 15 mg/dl (7-17); Carbon Dioxide 25 mmol/L (22.0-30.0); Cholesterol 211 mg/dl (140-200); Creatinine,Serum 0.70 mg/dl (0.52-1.04); Estimated Glomerular Filt Rate 101 ml/min (>60); GFR (African American) 122 ML/MIN (>60); Globulin 2.8 g/dL (1.3-3.2); Total Protein,Serum 7.3 g/dl (6.3-8.2); Triglycerides 142 mg/dl (30-150)
[2025-06-07 09:04] LABS: Calcium 9.7 mg/dl (8.4-10.2); Glucose 106 mg/dl (74-100); HDL Cholesterol 39 mg/dl (40-60)
[2025-06-07 09:32] LABS: Thyroid Stimulating Hormone 4.22 uIU/mL (0.465-4.68)
== END 2025-06-07 23:59 | disposition home or self-care (01) ==
LOC: RAD 07:34
PROVIDERS: PCP Family Medicine; Visit Provider Family Medicine
DX: M79.652 Pain in left thigh (principal); E78.49 Other hyperlipidemia; I10 Essential (primary) hypertension
CPT/HCPCS: 36415; 73552; 80053; 80061; 82043; 82570; 84443